=== PATIENT | male | born 1950 | race Caucasian/White ===

== ENCOUNTER 2024-12-08 10:35 | Emergency (ER) | payer BC, SELFPAY ==
[2024-12-08 10:41] VITALS: BP 176/62
[2024-12-08 11:09] VITALS: BMI 40.9
--- NOTE | 2024-12-08 11:47 | ED.GENMED ---
History of Present Illness
General
Chief Complaint: Abdominal Symptoms
Source: patient
Exam Limitations: none
Time Seen by Provider: 12/08/24 11:45
Nursing documentation reviewed up to this point in time: agreed with
History of Present Illness
History of Present Illness:
Note:
CHIEF COMPLAINT(S)
Constipation with blood in stools.
HISTORY OF PRESENT ILLNESS
The patient is a 73-year-old male who presented to the emergency department with a complaint of constipation and associated rectal bleeding. The constipation has persisted for a few weeks, with the patient only experiencing a few bowel movements
characterized by hard stools. The patient reports trying various nzsw-cnp-vugdzdf preparations such as Miralax and suppositories with minimal relief. He noted a noteworthy amount of blood in the stools, which concerns him. The patient has a history
of recent surgery and was advised to stop his blood thinner medication temporarily for the procedure. The patient also disclosed having kidney issues.
PHYSICAL EXAM
General: Alert, no acute distress.
Skin: Warm, dry.
Head: Normocephalic, atraumatic.
Neck: Supple, trachea midline.
Eye, Ears, Nose, Mouth, and Throat: Oral mucosa moist.
Cardiovascular: Normal peripheral perfusion, no edema.
Respiratory: Respirations are non-labored.
Gastrointestinal: Abdomen nondistended.
Back: Normal range of motion, normal alignment.
Musculoskeletal: Normal range of motion, normal strength.
Neurological: Alert and oriented to person, place, time, and situation, no focal neurological deficit observed.
Psychiatric: Cooperative, appropriate mood & affect.
PLAN
The patient will undergo blood tests to evaluate his condition further. A medication, Magnesium Citrate, is planned to be given to aid in alleviating the constipation.
DIFFERENTIAL DIAGNOSIS
The Differential Diagnosis includes, in no particular order and is not limited to:
1. Hemorrhoids
2. Anal fissures
3. Colorectal cancer
4. Diverticulosis
5. Gastrointestinal bleeding related to anticoagulant use
6. Constipation due to medication side effects
7. Irritable bowel syndrome
8. Colonic polyps
9. Inflammatory bowel disease
10. Chronic kidney disease affecting bowel habits
CARE-UPDATE
12/08/24 - 14:58
The patient is stable for discharge. Recommended magnesium citrate for constipation management. Follow-up with primary care and gastroenterology for further evaluation of hemorrhoids and any potential underlying causes of minimal rectal bleeding.
Disposition:
SUMMARY OF ENCOUNTER
The patient, a 73-year-old male, was seen in the emergency department with a primary complaint of constipation and rectal bleeding. Symptoms had persisted for several weeks, with a notable lack of relief from mrbh-bqu-xqtehyn treatments like
polyethylene glycol (MiraLAX). The patient had a recent history of surgery where blood thinner medication was temporarily halted, potentially contributing to the gastrointestinal symptoms. During the visit, the patient was assessed and found to be
stable, without acute distress.
DISPOSITION
Discharge.
ASSESSMENT
The patient is experiencing constipation with rectal bleeding, potentially due to several causes including hemorrhoids, anal fissures, or side effects of recent medication changes such as the cessation of blood thinners.
PLAN
The patient will undergo blood tests to further evaluate his condition and has been advised to take magnesium citrate as a bowel preparation to relieve constipation. The patient will follow up with primary care and gastroenterology specialists for
further assessment, particularly concerning hemorrhoids and other potential causes for rectal bleeding.
FOLLOW-UP INSTRUCTIONS
The patient is advised to schedule follow-up appointments with both primary care and a gastroenterology specialist for further evaluation of the rectal bleeding and any underlying issues.
MEDICATION RECONCILIATION
- Magnesium citrate (administered for constipation relief).
MEDICAL DECISION MAKING
- Chronic conditions affecting care: Chronic kidney issues, history of recent surgery, and temporary cessation of blood thinners.
- Differential Diagnosis: Hemorrhoids, anal fissures, colorectal cancer, diverticulosis, gastrointestinal bleeding related to anticoagulant use, constipation due to medication side effects, irritable bowel syndrome, colonic polyps, inflammatory
bowel disease, and chronic kidney disease affecting bowel habits.
DIAGNOSIS
- Constipation (ICD-10: K59.00)
- Rectal bleeding (ICD-10: K62.5)
Phy Exam
Physical Exam
Physical Exam:
.
Course
Orders/Labs/Results
Orders:
Orders
12/08/24 12:49
Obstruct Series W/PA Chest [CR Obstruct Series W/pa Chest] Urgent
Comment:
Reason For Exam: difficulty having bm
12/08/24 14:11
IV Insert/Care/Rem.- Treatment PRN
12/08/24 14:16
Basic Metabolic Panel Urgent
Complete Blood Count/With Diff Urgent
Prothrombin Time Urgent
12/08/24 14:59
Magnesium Citrate [Citroma] 300 ml PO ONCE ONE
Abnormal Lab Results
12/08/24
14:16
RBC 3.64 L 10^6/uL
(4.70-6.10)
Hgb 11.4 L g/dL
(13.0-18.0)
Hct 34.1 L %
(39.0-52.0)
MCH 31.3 H pg
(27.0-31.0)
Plt Count 121 L 10^3/uL
(130-400)
Eosinophils % 6.8 H %
(0-6)
PT 30.3 H Sec
(11.4-14.6)
Sodium 134 L mmol/L
(135-145)
BUN 34 H mg/dl
(9-20)
Creatinine 1.5 H mg/dL
(0.7-1.3)
Glucose 186 H mg/dl
(70-99)
12/08/24 14:16
12/08/24 14:16
Vital Signs
Initial and Last Documented VS:
Initial Vital Signs
Temp Pulse Resp BP Pulse Ox
98.8 F 67 17 176/62 95
12/08/24 10:41 12/08/24 10:41 12/08/24 10:41 12/08/24 10:41 12/08/24 10:41
Last Documented Vital Signs
Temp Pulse Resp BP Pulse Ox
98.8 F 57 18 150/71 93
12/08/24 10:41 12/08/24 14:17 12/08/24 14:17 12/08/24 14:17 12/08/24 14:17
*Pulse Oximetry
SaO2: 95
Oxygen Mode of Delivery: Room air
Patient hypoxic: no
*Critical Care Note
Total Time (30-74mins, 75-104mins- exclusive of procedures): Not Applicable
ED Attending Note
-
Portions of this chart may have been created with voice recognition software.� Occasional wrong word or��sound alike� substitutions may have occurred due to the inherent limitations of voice recognition software.
Discharge Plan
Departure
Patient Disposition: Home (Routine Discharge)
Date of Disposition: 12/08/24
Time of Disposition: 14:57
Patient with high blood pressure during this ER visit?: Yes
Condition: Good
Discharge Problem:
Constipation
Instructions: Constipation, Adult (DC), BLOOD PRESSURE
Referrals:
Rhoda Trivedi [employer] [Family Provider] - Call in 1-3 days for appt
Interventions
Interventions:
*Risk Screen - Suicide Last Done: 12/08/24 10:45
*General Assessment Last Done: 12/08/24 10:45
*Neglect/Abuse Screening Last Done: 12/08/24 10:45
*ED- Fall Risk Assessment Last Done: 12/08/24 11:10
*ED COVID-19 Vaccine History Last Done: 12/08/24 10:45
YO-Gavgui-Wqnzqyalpe Assessment Last Done: 12/08/24 11:10
Discharge Date and Time
Print Language: UKRAINIAN
[2024-12-08 14:17] VITALS: BP 150/71
[2024-12-08 14:29] LABS: Hematocrit 34.1 % (39.0-52.0); Hemoglobin 11.4 g/dL (13.0-18.0); Mean Corp Hgb Conc. 33.4 g/dL (33.0-37.0); Mean Corpuscular Volume 93.7 fL (80.0-94.0); Nucleated Red Blood Cells % 0 % (-); Platelet Count 121 10^3/uL (130-400); Red Cell Dist. Width 11.9 % (11.5-14.5)
[2024-12-08 14:41] LABS: INR 2.91; PT 30.3 Sec (11.4-14.6)
[2024-12-08 14:50] LABS: Blood Urea Nitrogen 34 mg/dl (9-20); Calcium 9.6 mg/dl (8.4-10.2); Carbon Dioxide 28 mmol/L (22-30); Chloride 105 mmol/L (98-107); Estimated Creatinine Clearance 59 ml/min; Glucose 186 mg/dl (70-99); Sodium 134 mmol/L (135-145); eGFR 48.85
[2024-12-08] MEDS: CITROMA 300 ML PO (15:06)
== END 2024-12-08 15:13 | disposition home or self-care (01) ==
LOC: EMR 10:35
PROVIDERS: EMERGENCY PHYSICIAN Emergency Medicine; FAMILY PHYSICIAN Nurse Practitioner Adult Health
DX: K59.00 Constipation, unspecified (principal); K92.1 Melena; R03.0 Elevated blood-pressure reading, without diagnosis of hypertension
CPT/HCPCS: 99283; 74022; 80048; 85025; 85610

== ENCOUNTER 2025-04-04 18:18 | Emergency (ER) | payer OTHER, SELFPAY ==
[2025-04-04 18:30] VITALS: BP 176/70
--- NOTE | 2025-04-04 23:26 | ED.GENMED ---
History of Present Illness
General
Chief Complaint: DVT/Possible Blood Clot
Source: patient
Exam Limitations: none
Time Seen by Provider: 04/04/25 21:04
Nursing documentation reviewed up to this point in time: agreed with
History of Present Illness
History of Present Illness:
Patient to the emergency department for evaluation of redness and swelling to left lower lundberg. States he had hit his leg on furniture a few days ago. Developed a hematoma at site. States the swelling to his lundberg and foot continues to worsen. He
was evaluated at urgent care and advised to come to the ED for ultrasound to rule out DVT. He has no history of DVT. To ED accompanied by spouse for evaluation. On Xarelto for history of A-fib.
Past History
Past History
ED Past Medical History: Arrthythmia ( A-fib), CAD, Cancer (Prostates CA), HTN, Hypercholesterolemia and IDDM
ED Past Surgical History: Cardiac (Cardiac stents)
Review of Systems
Review of Systems
Constitutional: Reports no symptoms
EENT: Reports no symptoms
Respiratory: Reports no symptoms
Cardiac: Reports no symptoms
ABD/GI: Reports no symptoms
Musculoskeletal: Reports no symptoms
Skin: Reports other (Swelling and bruising noted to left anterior lundberg left lateral ankle left lateral foot.)
Neurological: Reports no symptoms
Psychiatric: Reports no symptoms
Phy Exam
General Physical Exam
General Presentation: well appearing and no apparent distress
General age: appears stated age
General Skin: warm and dry
General Habitus: normal
Cardiovascular Exam
Cardiovascular Exam: regular rate/rhythm
Pulmonary Exam
Pulmonary Exam: lungs clear and no respiratory distress
Musculoskeletal Exam
Musculoskeletal Exam: full ROM and neuro vasc intact
Skin Exam
Skin Exam: warm/dry, no rash and other (Bruising and swelling noted to left anterior ankle left anterior lower lundberg left lateral foot)
Psychiatric Exam
Psychiatric Exam: normal mood/affect
Course
Orders/Labs/Results
Orders:
Orders
04/04/25 21:09
US Periph Venous LOWER Ext LT Urgent
Comment:
Reason For Exam: pain, swelling
Vital Signs
Initial and Last Documented VS:
Initial Vital Signs
Temp Pulse Resp BP Pulse Ox
98.1 F 55 20 176/70 94
04/04/25 18:30 04/04/25 18:30 04/04/25 18:30 04/04/25 18:30 04/04/25 18:30
Last Documented Vital Signs
Temp Pulse Resp BP Pulse Ox
98.1 F 55 20 176/70 94
04/04/25 18:30 04/04/25 18:30 04/04/25 18:30 04/04/25 18:30 04/04/25 23:26
*Radiology
Radiology exam reviewed: radiology read reviewed
*Pulse Oximetry
SaO2: 94
Oxygen Mode of Delivery: Room air
Patient hypoxic: no
*Critical Care Note
Total Time (30-74mins, 75-104mins- exclusive of procedures): Not Applicable
Update Note
Update Note:
Patient to emergency department for evaluation of left lower lundberg bruising and swelling, swelling and bruising to left lateral ankle and left lateral foot. History of trauma few days ago, reports hitting his leg on furniture. Ultrasound negative
for DVT. Swelling and bruising consistent with prior trauma, exaggerated due to anticoagulation. Discussed this with patient and spouse. He will continue to elevate and ice. Follow-up with his family doctor. He was given instructions on signs
and symptoms to return to the emergency department and he is agreeable to this plan.
ED Attending Note
-
Portions of this chart may have been created with voice recognition software.� Occasional wrong word or��sound alike� substitutions may have occurred due to the inherent limitations of voice recognition software.
Discharge Plan
Departure
Patient Disposition: Home (Routine Discharge)
Date of Disposition: 04/04/25
Time of Disposition: 22:33
Patient with high blood pressure during this ER visit?: No
Condition: Good
Covid-19: Not Applicable
Discharge Problem:
Hematoma
Instructions: Hematoma, RICE Therapy
Referrals:
Rhoda Trivedi, [employer] [Family Provider] - Follow up in 2-3 days
Interventions
Interventions:
*General Assessment Last Done: 04/04/25 18:30
*Neglect/Abuse Screening Last Done: 04/04/25 18:30
*ED COVID-19 Vaccine History Last Done: 04/04/25 21:30
*ED Influenza Vaccine History Last Done: 04/04/25 21:30
[facility] Fall Risk Assessment Tool Last Done: 04/04/25 20:34
*Risk Screen - Suicide (C-SSRS) Last Done: 04/04/25 21:30
*Nursing Disposition Last Done: 04/04/25 22:40
ED-Peripheral Vascular Assessment Last Done: 04/04/25 20:51
ED-Skin Assessment Last Done: 04/04/25 20:51
Discharge Date and Time
Discharge Date/Time: 04/04/25 22:41
Print Language: [place] ISLAND[place]
== END 2025-04-04 22:41 | disposition home or self-care (01) ==
LOC: EMR 18:18
PROVIDERS: EMERGENCY PHYSICIAN Emergency Medicine; FAMILY PHYSICIAN Nurse Practitioner Adult Health
DX: S80.12XA Contusion of left lower leg, initial encounter (principal); W22.03XA Walked into furniture, initial encounter; R22.42 Localized swelling, mass and lump, left lower limb; E11.9 Type 2 diabetes mellitus without complications; E78.00 Pure hypercholesterolemia, unspecified; I10 Essential (primary) hypertension; I25.10 Atherosclerotic heart disease of native coronary artery without angina pectoris; I48.91 Unspecified atrial fibrillation; Z95.5 Presence of coronary angioplasty implant and graft; Z79.01 Long term (current) use of anticoagulants
CPT/HCPCS: 99284; 93971